=== PATIENT | female | born 1995 | race Two or more races ===

== ENCOUNTER 2023-12-06 11:13 | Emergency (ER) | payer OTHER ==
[~2023-12-06] VITALS: Ht 165.1 cm; Wt 90.7 kg
[2023-12-06] MEDS ORDERED: PRENATABS RX T1 EACH (11:42)
[2023-12-06 13:15] LABS: URINE APPEARANCE Clear; URINE BILIRRUBIN Negative (NEGATIVE); URINE BLOOD Trace; URINE COLOR Yellow; URINE GLUCOSE Negative (NEGATIVE); URINE LEUKOCYTE Trace; URINE NITRATE Negative; URINE PROTEIN Negative (NEGATIVE); URINE UROBILINOGEN 0.2 E.U./dl
[2023-12-06 13:16] LABS: URINE BACTERIA 61.6 uL (0.0-1933); URINE EPITHELIAL CELLS 3.2 uL (0.0-38.8); URINE WBC 2.9 uL (0.0-23.2)
[2023-12-06 13:17] LABS: HEMATOCRIT 37.7 % (36.0-45.00); HEMOGLOBIN 13.3 g/dL (12.0-15.00); MEAN CORPUSCULAR HEMOGLOBIN 29.3 pg (27.00-32.0); MEAN CORPUSCULAR HGB CONC 35.3 g/dl (32.0-36.0); PLATELET COUNT 211 K/uL (150-450); RED BLOOD COUNT 4.55 M/uL (4.00-6.00); RED CELL DISTRIBUTION WIDTH 13.5 % (11.5-14.5)
[2023-12-06 13:36] LABS: INR 1.04; PARTIAL THROMBOPLASTIN TIME 28.5 SECONDS (22.0-34.0); PROTHROMBIN TIME 10.9 SECONDS (9.0-11.5)
[2023-12-06 13:41] LABS: URINE RBC 0.8 uL (0.0-20.8)
[2023-12-06 13:58] LABS: CREATININE SERUM 0.76 mg/dL (0.55-1.02); GFR 91.29; POTASSIUM 3.94 mEq/L (3.5-5.1)
== END 2023-12-06 15:09 | disposition home or self-care (01) ==
LOC: ER 11:13
PROVIDERS: General Practice
DX: O20.9 Hemorrhage in early pregnancy, unspecified (principal); Z3A.01 Less than 8 weeks gestation of pregnancy

== ENCOUNTER 2025-08-18 14:00 | Inpatient (IN) | payer OTHER ==
[~2025-08-18] VITALS: Ht 165.1 cm; Wt 100.7 kg
[~2025-08-18 14:00] MED LIST: PRENATABS RX T1 EACH
[2025-08-29 23:49] VITALS: BP 132/83
[2025-08-30] MEDS ORDERED: RINGERS SOLUTION,LACTATED 1,000 ML IV SCH (00:15)
[2025-08-30] MEDS ORDERED: MORPHINE SULFATE 4 MG/ML VIAL IV PRN (00:15)
[2025-08-30] MEDS ORDERED: AMPICILLIN SODIUM 2,000 MG VIAL IV ONE (00:15)
[2025-08-30 01:38] LABS: BASO % 0.2 % (0.1-1.2); EOS # 0.04 (0.04-0.54); EOS % 0.2 % (0.7-7.0); LYMPH # 2.51 (1.18-3.74); LYMPH % 13.9 % (19.3-53.1); MEAN PLATELET VOLUME 12.20 fl (9.4-12.4); MONO # 1.16 (0.24-0.82); MONO % 6.4 % (4.7-12.5); NEUT # 14.23 (1.56-6.13); NEUT % 78.9 % (34.0-71.1); RED CELL DISTRIBUTION WIDTH 14.0 % (11.6-14.4)
[2025-08-30 01:50] LABS: INR < 0.93
[2025-08-30 02:35] LABS: ALT/SGPT 20.0 U/L (12-78); AST/SGOT 21.0 U/L (15-37); BILIRUBIN TOTAL 0.26 mg/dL (0.3-1.2); BUN CREA RATIO 13.0 (7.0-25.0); CREATININE SERUM 0.62 mg/dL (0.55-1.02); GFR 113.8; GLOBULINA 4.3 G/DL (2.4-3.5); GLUCOSE FASTING 71.0 mg/dL (65-100); OSMOLALITY SERUM 272.0 MOSM/KG (275-295)
[2025-08-30 04:28] VITALS: BP 122/54
[2025-08-30] MEDS ORDERED: AMPICILLIN SODIUM 1,000 MG VIAL IV SCH (05:00)
[2025-08-30 07:31] VITALS: BP 100/56
[2025-08-30] MEDS ORDERED: OXYTOCIN 500 ML IV ONE (08:45)
[2025-08-30] MEDS ORDERED: AMPICILLIN SODIUM 1,000 MG VIAL ONE (09:35)
[2025-08-30] MEDS ORDERED: OXYTOCIN 20 UNITS/1000ML RL PIGGYBAG IV ONE (11:18)
[2025-08-30] MEDS ORDERED: LIDOCAINE HCL 1% 10ML VIAL ONE (11:18)
[2025-08-30] MEDS ORDERED: ERYTHROMYCIN BASE OPHT 1GM EACH TUBE OP ONE (11:18)
[2025-08-30] MEDS ORDERED: CHLORHEXIDINE GLUCONATE 120 ML BOTTLE TOP ONE ×2 (11:18→13:30)
[2025-08-30] MEDS ORDERED: OXYTOCIN 1,000 ML IV SCH (13:30)
[2025-08-30 14:31] VITALS: BP 130/80
[2025-08-30 21:54] VITALS: BP 120/77
[2025-08-31 01:16] VITALS: BP 114/67
[2025-08-31 07:59] LABS: BASO % 0.3 % (0.1-1.2); EOS # 0.02 (0.04-0.54); EOS % 0.1 % (0.7-7.0); LYMPH # 2.82 (1.18-3.74); LYMPH % 19.5 % (19.3-53.1); MEAN PLATELET VOLUME 11.60 fl (9.4-12.4); MONO # 1.25 (0.24-0.82); MONO % 8.6 % (4.7-12.5); NEUT # 10.28 (1.56-6.13); NEUT % 71.0 % (34.0-71.1); RED CELL DISTRIBUTION WIDTH 14.5 % (11.6-14.4)
[2025-08-31 08:00] VITALS: BP 110/67
[2025-08-31 16:27] VITALS: BP 119/82
[2025-09-01] VITALS: BP 113/75
[2025-09-01 08:00] VITALS: BP 124/69
== END 2025-09-01 14:28 | disposition home or self-care (01) | DRG 807 ==
LOC: OB/GYN 08-29 14:00 → LDR 08-30 00:03 → OB/GYN 08-30 13:51
PROVIDERS: Obstetrics & Gynecology; ADMIT Obstetrics & Gynecology Maternal & Fetal Medicine; ATTEND Obstetrics & Gynecology Maternal & Fetal Medicine
PROC: 10E0XZZ Delivery of Products of Conception, External Approach (ICD-10-PCS; principal; 2025-08-30)
PROC: 0UQMXZZ Repair Vulva, External Approach (ICD-10-PCS; 2025-08-30)
PROC: 4A1HXCZ Monitoring of Products of Conception, Cardiac Rate, External Approach (ICD-10-PCS; 2025-08-30)
DX: O70.0 First degree perineal laceration during delivery (principal); O99.824 Streptococcus B carrier state complicating childbirth; Z37.0 Single live birth; Z3A.40 40 weeks gestation of pregnancy

== ENCOUNTER 2025-08-25 12:50 | Outpatient (CLI) | payer OTHER | END 2025-08-25 13:30 | disposition home or self-care (01) | LOC: NST 12:50 | PROVIDERS: ATTEND Obstetrics & Gynecology | DX: Z34.83 Encounter for supervision of other normal pregnancy, third trimester (principal) ==